=== PATIENT | female | born 1990 | race Native Hawaiian/Other Pacific Islander ===

== ENCOUNTER 2021-07-19 19:01 | Emergency (ER) | payer OTHER ==
[~2021-07-19] VITALS: Ht 165.1 cm; Wt 88.9 kg
[2021-07-19 19:50] LABS: PLATELET COUNT 207 K/uL (152-353)
[2021-07-19 19:53] LABS: POTASSIUM 4.2 mmol/L (3.6-5.2); SODIUM 137 mmol/L (136-145)
[2021-07-19 19:57] LABS: PARTIAL THROMBOPLASTIN TIME 25.4 SECONDS (24.5-33.6)
[2021-07-19 21:00] VITALS: BP 101/41; TEMP 97
== END 2021-07-19 21:32 ==
LOC: ED 19:01
PROVIDERS: Hospitalist
DX: R07.89 Other chest pain (principal)
CPT/HCPCS: 36415; 80053; 82550; 83880; 84484; 85027; 85379; 85610; 85730; 93005; 99283